=== PATIENT | male | born 1995 | race Caucasian/White ===

== ENCOUNTER 2021-08-21 14:12 | Emergency (ER) | payer BC, OTHER ==
[2021-08-21 14:56] LABS: #Eosinphils 0.2 10x3/uL (0.0-0.5); #Monocytes 0.7 10x3/uL (0.0-1.1); #Neutrophils 9.9 10x3/uL (1.5-8.4); %Basophils 0.3 % (0.0-2.0); %Eosinophils 1.3 % (0.0-6.0); %Lymphocytes 7.2 % (18.0-47.0); %Monocytes 5.9 % (0.0-10.0); %Neutrophils 84.5 % (40.0-75.0); Hemoglobin 15.8 g/dL (13.5-17.5); Mean Corpuscular HGB CONC 32.7 g/dL (32.0-36.0); Mean Corpuscular Hemoglobin 26.9 pg (27.0-33.0); Mean Corpuscular Volume 82.1 fl (81.2-95.1); Mean Platelet Volume 11.9 fl (7.4-10.4); Platelet Count 218 10x3/uL (150-450); Red Blood Cell (RBC) Count 5.88 10x6/uL (4.32-5.72); White Blood Cell (WBC) Count 11.7 10x3/uL (3.5-10.5)
[2021-08-21 15:16] LABS: ALT (SGPT) 80 U/L (8-55); AST (SGOT) 46 U/L (5-34); Albumin 3.5 g/dL (3.5-5.0); Alkaline Phosphatase 173 U/L (40-110); Anion Gap 15 mmol/L (10-20); BUN (Urea Nitrogen) 12 mg/dL (8.9-20.6); Bilirubin, Total 0.7 mg/dL (0.2-1.2); Calc. Creatinine Clearance 0 mL/min (70-130); Calcium 8.8 mg/dL (7.8-10.44); Carbon Dioxide 21 mmol/L (22-29); Chloride 104 mmol/L (98-107); Globulin 2.6 g/dL (2.4-3.5); Glucose 329 mg/dL (70-105); Potassium 4.3 mmol/L (3.5-5.1); Protein, Total 6.1 g/dL (6.0-8.3); Sodium 136 mmol/L (136-145)
[2021-08-21 15:29] LABS: Actual Bicarbonate (HCO3v) 21 mEq/L (22-28); Base Excess -1.7 mEq/L (-2.0 to +3.0); Calcium, Ionized (venous) 1.08 mmol/L (1.16-1.32); Chloride (VBG) 102 mmol/L (98-106); Hemoglobin (Hb) 16.2 g/dL (13.2-17.3); Potassium (VBG) 4.09 mmol/L (3.70-5.30); Puncture Site Other Site; RapidComm Collect By CBN; Sodium 132.3 mmol/L (133-146); pH (venous) 7.47 (7.32-7.43)
[2021-08-21] MEDS ORDERED: methylPREDNISolone Sod Succ/PF 125 MG/2 ML VIAL ONE (15:31)
[2021-08-21] MEDS ORDERED: diphenhydrAMINE 50 MG/ML VIAL ONE (15:32)
[2021-08-21] MEDS ORDERED: Famotidine/PF 20 mg/2ml Vial ONE (15:32)
[2021-08-21] MEDS ORDERED: Vancomycin HCl 500 MG VIAL ONE (15:32)
[2021-08-21 16:33] LABS: SARS-CoV-2 NAA Rapid Test Not Detected (NotDetected)
== END 2021-08-21 21:14 | disposition short-term general hospital (02) ==
LOC: CSHERS 14:12
DX: A41.9 Sepsis, unspecified organism (principal); J18.9 Pneumonia, unspecified organism; R09.02 Hypoxemia; Z20.822 Contact with and (suspected) exposure to COVID-19; Z94.2 Lung transplant status; Z79.01 Long term (current) use of anticoagulants; Z79.52 Long term (current) use of systemic steroids; Z79.899 Other long term (current) drug therapy; Z79.4 Long term (current) use of insulin
CPT/HCPCS: 0240U; 36415; 71045; 80053; 82805; 83605; 84484; 85025; 85379; 87040; 87633; 87798; 93005; 96365; 96366; 96367; 96368; 96375; J1200; J1956; J2930; J3370; S0028

== ENCOUNTER 2022-01-25 13:13 | Inpatient (IN) | payer BC, OTHER ==
[~2022-01-25 13:13] MED LIST: Iopamidol 370 76% 100 ML VIAL ONE
[2022-01-25 13:59] LABS: Hemoglobin 14.4 g/dL (13.5-17.5); Mean Corpuscular HGB CONC 32.4 g/dL (32.0-36.0); Mean Corpuscular Hemoglobin 27.1 pg (27.0-33.0); Mean Corpuscular Volume 83.6 fl (81.2-95.1); Mean Platelet Volume 10.8 fl (7.4-10.4); Platelet Count 334 10x3/uL (150-450); Red Blood Cell (RBC) Count 5.32 10x6/uL (4.32-5.72); White Blood Cell (WBC) Count 21.5 10x3/uL (3.5-10.5)
[2022-01-25 14:00] LABS: MDiff Complete? YES
[2022-01-25 14:17] LABS: Eosinophils 1 % (0-10); Lymphocytes 4 % (21-51); Monocytes 5 % (0-10); Neutrophil 90 % (42-75)
[2022-01-25 14:18] LABS: Platelet Morphology Comment Appears Adequate
[2022-01-25 14:25] LABS: ALT (SGPT) 18 U/L (8-55); AST (SGOT) 21 U/L (5-34); Albumin 3.5 g/dL (3.5-5.0); Alkaline Phosphatase 87 U/L (40-110); Anion Gap 15 mmol/L (10-20); BUN (Urea Nitrogen) 16 mg/dL (8.9-20.6); Bilirubin, Total 0.8 mg/dL (0.2-1.2); Calc. Creatinine Clearance 0 mL/min (70-130); Calcium 9.6 mg/dL (7.8-10.44); Carbon Dioxide 27 mmol/L (22-29); Chloride 97 mmol/L (98-107); Globulin 3.9 g/dL (2.4-3.5); Glucose 246 mg/dL (70-105); Potassium 4.2 mmol/L (3.5-5.1); Protein, Total 7.4 g/dL (6.0-8.3); Sodium 135 mmol/L (136-145)
[2022-01-25 15:15] LABS: SARS-CoV-2 NAA Rapid Test Not Detected (NotDetected)
[2022-01-25] MEDS ORDERED: Lidocaine 1% (PF) 30 ML VIAL ONE (16:20)
[2022-01-25] MEDS ORDERED: Aztreonam 2 GM in Sodium Chloride 0.9% 100 ML IVPB SCH (17:15)
[2022-01-25] MEDS ORDERED: Ondansetron PF 4 MG/2 ML Vial IVP PRN (17:43)
[2022-01-25] MEDS ORDERED: Ondansetron ODT 4 MG TAB PO PRN (17:43)
[2022-01-25] MEDS ORDERED: Acetaminophen 325 MG TAB PO PRN (17:43)
[2022-01-25] MEDS ORDERED: Dextrose 50% Abboject 50 ML SYRINGE SLOW IVP PRN ×2 (17:46→20:18)
[2022-01-25] MEDS ORDERED: Dextrose 5% in Water 1,000 ML IV PRN ×2 (17:46→20:18)
[2022-01-25] MEDS ORDERED: Pharmacy to Dose AZTREONAM IVPB PRN (17:50)
[2022-01-25] MEDS ORDERED: Electrolyte Replacement Protocol 1 EACH FS SCH (18:00)
[2022-01-25 18:30] VITALS: BMI 21.1
[2022-01-25] MEDS ORDERED: Albuterol Sulfate 2.5 mg/3 ml Neb NEB PRN (19:48)
[2022-01-25] MEDS ORDERED: HumaLOG 300 UNITS/3 ML VIAL SC PRN (20:18)
[2022-01-25 22:49] LABS: Legionella Urinary Ag Negative (Negative); Strep pneumo Urine Ag NEGATIVE (NEGATIVE)
[2022-01-26] MEDS: Aztreonam 2 GM in Sodium Chloride 0.9% 100 ML IVPB SCH ×3 (02:00→17:45)
[2022-01-26] MEDS ORDERED: Budesonide 0.5 MG/2 ML NEB NEB SCH (07:00)
[2022-01-26] MEDS: Tacrolimus 1 MG CAP PO SCH ×2 (08:54→21:10)
[2022-01-26] MEDS: Cholecalciferol 1,000 UNITS (25 MCG) TAB PO SCH (08:56)
[2022-01-26] MEDS: Magnesium Oxide 400 MG TAB PO SCH ×3 (08:57→21:11)
[2022-01-26] MEDS: Ferrous Sulfate 325 MG TAB PO SCH ×2 (08:57→16:10)
[2022-01-26] MEDS: Mycophenolate 250 MG CAP PO SCH ×2 (08:58→21:11)
[2022-01-26] MEDS: Calcium Carbonate 600 MG + Vit D TAB PO SCH ×2 (08:58→21:11)
[2022-01-26] MEDS: predniSONE 10 MG TAB PO SCH (08:59)
[2022-01-26] MEDS ORDERED: Metoprolol Tartrate 25 MG TAB PO SCH (09:00)
[2022-01-26 09:05] LABS: #Basophils 0.1 10x3/uL (0.0-0.2); #Eosinphils 0.2 10x3/uL (0.0-0.5); #Neutrophils 13.7 10x3/uL (1.5-8.4); %Basophils 0.5 % (0.0-2.0); %Eosinophils 0.9 % (0.0-6.0); %Lymphocytes 7.5 % (18.0-47.0); %Monocytes 6.2 % (0.0-10.0); %Neutrophils 83.3 % (40.0-75.0); Hemoglobin 13.3 g/dL (13.5-17.5); Mean Corpuscular HGB CONC 32.6 g/dL (32.0-36.0); Mean Corpuscular Hemoglobin 26.9 pg (27.0-33.0); Mean Corpuscular Volume 82.4 fl (81.2-95.1); Mean Platelet Volume 10.6 fl (7.4-10.4); Platelet Count 281 10x3/uL (150-450); RBC Distribution Width 12.8 % (11.5-14.5); Red Blood Cell (RBC) Count 4.95 10x6/uL (4.32-5.72); White Blood Cell (WBC) Count 16.4 10x3/uL (3.5-10.5)
[2022-01-26] MEDS: Floranex 1 GM Packet PO SCH (09:09)
[2022-01-26] MEDS: NPH, Human Insulin Isophane 300 UNIT/3 ML VIAL SC SCH (09:11)
[2022-01-26 09:21] LABS: Anion Gap 14 mmol/L (10-20); BUN (Urea Nitrogen) 14 mg/dL (8.9-20.6); Calc. Creatinine Clearance 119 mL/min (70-130); Calcium 8.8 mg/dL (7.8-10.44); Carbon Dioxide 27 mmol/L (22-29); Chloride 101 mmol/L (98-107); Glucose 146 mg/dL (70-105); Magnesium 1.7 mg/dL (1.6-2.6); Potassium 4.2 mmol/L (3.5-5.1); Sodium 138 mmol/L (136-145)
[2022-01-26] MEDS: Ipratropium Bromide 2.5 ml Neb NEB SCH ×2 (09:45→19:07)
[2022-01-26] MEDS ORDERED: Magnesium 2 GM/50 ML(in water) 2 GM in Premix Bag 1 BAG IVPB SCH (10:00)
[2022-01-26] MEDS ORDERED: Magnesium 2 GM/50 ML BAG (IN WATER) ONE (10:38)
[2022-01-26] MEDS: HumaLOG 300 UNITS/3 ML VIAL SC SCH ×3 (10:51→18:16)
[2022-01-26] MEDS ORDERED: Insulin Regular 300 UNITS/3 ML VIAL SC PRN (12:32)
[2022-01-26] MEDS ORDERED: Pancrelipase DR 12,000 1 CAP PO PRN (17:14)
[2022-01-26] MEDS: AMYLASE PO SCH (17:50)
[2022-01-26] MEDS: LIPASE PO SCH (17:50)
[2022-01-26] MEDS: PROTEASE PO SCH (17:50)
[2022-01-26] MEDS ORDERED: STERILE WATER INH SCH ×2 (18:30→19:45)
[2022-01-26] MEDS ORDERED: AMPHOTERICIN B INH SCH (18:30)
[2022-01-26] MEDS ORDERED: AMBISOME INH SCH ×2 (18:30→19:45)
[2022-01-26] MEDS ORDERED: TOBRAMYCIN 300 MG/5 ML AMP (INHALATION) IH SCH (20:30)
[2022-01-26] MEDS ORDERED: PATIENT'S HOME MEDICATION NEB SCH (21:00)
[2022-01-26] MEDS ORDERED: Montelukast Sodium 10 mg Tablet PO SCH (21:00)
[2022-01-26] MEDS ORDERED: Simvastatin 10 MG TAB PO SCH (21:00)
[2022-01-26] MEDS ORDERED: Ipratropium Bromide 2.5 ml Neb ONE (21:11)
[2022-01-27] MEDS: Aztreonam 2 GM in Sodium Chloride 0.9% 100 ML IVPB SCH ×2 (02:00→12:33)
[2022-01-27] MEDS ORDERED: Ipratropium Bromide 2.5 ml Neb NEB SCH (06:30)
[2022-01-27] MEDS ORDERED: Budesonide 0.5 MG/2 ML NEB NEB SCH (06:30)
[2022-01-27] MEDS ORDERED: TOBRAMYCIN 300 MG/5 ML AMP (INHALATION) IH SCH (06:30)
[2022-01-27] MEDS ORDERED: STERILE WATER INH SCH (07:00)
[2022-01-27] MEDS ORDERED: AMBISOME INH SCH (07:00)
[2022-01-27] MEDS: Ferrous Sulfate 325 MG TAB PO SCH (07:45)
[2022-01-27] MEDS: HumaLOG 300 UNITS/3 ML VIAL SC SCH ×2 (08:36→11:53)
[2022-01-27] MEDS: Cholecalciferol 1,000 UNITS (25 MCG) TAB PO SCH (08:36)
[2022-01-27] MEDS: predniSONE 10 MG TAB PO SCH (08:38)
[2022-01-27] MEDS: Mycophenolate 250 MG CAP PO SCH (08:38)
[2022-01-27] MEDS: Magnesium Oxide 400 MG TAB PO SCH (08:38)
[2022-01-27] MEDS: Floranex 1 GM Packet PO SCH (08:39)
[2022-01-27] MEDS: Tacrolimus 1 MG CAP PO SCH (08:43)
[2022-01-27] MEDS: Calcium Carbonate 600 MG + Vit D TAB PO SCH (08:43)
[2022-01-27] MEDS: NPH, Human Insulin Isophane 300 UNIT/3 ML VIAL SC SCH (08:44)
[2022-01-27] MEDS: Pancrelipase DR 12,000 1 CAP PO SCH ×2 (08:56→11:53)
[2022-01-27] MEDS ORDERED: Metoprolol Tartrate 25 MG TAB PO SCH (09:00)
[2022-01-27] MEDS ORDERED: ISAVUCONAZONIUM SULFATE 186 MG PO SCH (09:00)
[2022-01-27] MEDS ORDERED: AMPHOTERICIN B INH SCH (09:00)
[2022-01-27 09:30] LABS: #Eosinphils 0.1 10x3/uL (0.0-0.5); #Neutrophils 14.6 10x3/uL (1.5-8.4); %Basophils 0.2 % (0.0-2.0); %Eosinophils 0.5 % (0.0-6.0); %Lymphocytes 5.8 % (18.0-47.0); %Monocytes 6.1 % (0.0-10.0); %Neutrophils 86.2 % (40.0-75.0); Hemoglobin 12.9 g/dL (13.5-17.5); Mean Corpuscular HGB CONC 32.8 g/dL (32.0-36.0); Mean Corpuscular Hemoglobin 26.9 pg (27.0-33.0); Mean Corpuscular Volume 81.9 fl (81.2-95.1); Platelet Count 308 10x3/uL (150-450); RBC Distribution Width 12.6 % (11.5-14.5); White Blood Cell (WBC) Count 16.9 10x3/uL (3.5-10.5)
[2022-01-27 09:37] LABS: Anion Gap 12 mmol/L (10-20); BUN (Urea Nitrogen) 17 mg/dL (8.9-20.6); Calc. Creatinine Clearance 121 mL/min (70-130); Calcium 8.6 mg/dL (7.8-10.44); Carbon Dioxide 25 mmol/L (22-29); Chloride 100 mmol/L (98-107); Glucose 242 mg/dL (70-105); Magnesium 1.6 mg/dL (1.6-2.6); Potassium 3.9 mmol/L (3.5-5.1); Sodium 133 mmol/L (136-145)
[2022-01-27] MEDS ORDERED: Magnesium 2 GM/50 ML(in water) 2 GM in Premix Bag 1 BAG IVPB SCH (10:00)
[2022-01-27] MEDS ORDERED: Linezolid 600 MG in Premix Bag 1 BAG IVPB SCH (10:19)
[2022-01-27] MEDS ORDERED: Sulfameth/Trimethoprim DS 800-160mg TAB PO SCH (10:20)
[2022-01-27] MEDS ORDERED: methylPREDNISolone Sod Succ/PF 40 MG in Sodium Chloride 0.9% 250 ML 250 ML IVPB SCH (10:30)
[2022-01-27] MEDS ORDERED: methylPREDNISolone Sod Succ 40 MG VIAL IVP SCH (12:00)
[2022-01-27 17:13] VITALS: BP 112/72; TEMP 98
[2022-01-31 14:36] LABS: CMV DNA-PCR Test Negative (Negative)
[2022-02-02 22:12] LABS: HSV 1 - DNA Negative (Negative); HSV 2 - DNA Negative (Negative)
== END 2022-01-27 17:29 | disposition short-term general hospital (02) | DRG 205 ==
LOC: CSHERS 13:13 → CSHTELE 18:06
PROVIDERS: ADMIT Internal Medicine; ATTEND Internal Medicine
DX: T86.818 Other complications of lung transplant (principal); J96.01 Acute respiratory failure with hypoxia; J18.9 Pneumonia, unspecified organism; E84.9 Cystic fibrosis, unspecified; R73.9 Hyperglycemia, unspecified; R00.0 Tachycardia, unspecified; Z20.822 Contact with and (suspected) exposure to COVID-19; R59.0 Localized enlarged lymph nodes; T38.0X5A Adverse effect of glucocorticoids and synthetic analogues, initial encounter; Y83.0 Surgical operation with transplant of whole organ as the cause of abnormal reaction of the patient, or of later complication, without mention of misadventure at the time of the procedure; Z98.890 Other specified postprocedural states
CPT/HCPCS: 36415; 36416; 71045; 71275; 80048; 80053; 83605; 83735; 84145; 85025; 87040; 87070; 87103; 87205; 87449; 87497; 87529; 87899; 94640; 94760; J0289; J1815; J1956; J2001; J2920; J3475; J3490; J7507; J7512; J7517; J7626; J8499; Q9967